=== PATIENT | female | born 1950 | race Caucasian/White ===

== ENCOUNTER 2018-12-29 02:00 | Observation (INO) | payer MEDICARE ==
[2018-12-29] MEDS ORDERED: Aspirin Chewable 81 MG TAB ONE (02:12)
[2018-12-29] MEDS ORDERED: Nitroglycerin 2% Ointment 1 INCH/1 GM Packet ONE (02:12)
[2018-12-29] MEDS ORDERED: Ondansetron PF 4 MG/2 ML Vial ONE (02:12)
[2018-12-29 02:26] LABS: #Basophils 0.1 thou/uL (0.0-0.2); #Eosinphils 0.2 thou/uL (0.0-0.7); #Lymphocytes 2.8 thou/uL (1.20-3.40); #Monocytes 0.7 thou/uL (0.11-0.59); #Neutrophils 3.4 thou/uL (1.40-6.50); %Basophils 1.5 % (0.0-1.0); %Eosinophils 3.2 % (0.0-10.0); %Lymphocytes 39.6 % (21.0-51.0); %Neutrophils 46.7 % (42.0-75.0); Hemoglobin 14.8 g/dL (12.0-16.0); Mean Corpuscular HGB CONC 34.1 g/dL (32.0-36.0); Mean Corpuscular Hemoglobin 31.6 pg (27.0-31.0); Mean Corpuscular Volume 92.5 fL (78.0-98.0); Mean Platelet Volume 6.9 fL (7.4-10.4); Platelet Count 322 thou/uL (130-400); RBC Distribution Width 11.4 % (11.5-14.5); White Blood Cell (WBC) Count 7.2 thou/uL (4.8-10.8)
[2018-12-29 02:45] LABS: ALT (SGPT) 28 U/L (8-55); AST (SGOT) 35 U/L (5-34); Albumin 4.5 g/dL (3.4-4.8); Alkaline Phosphatase 46 U/L (40-150); Anion Gap 15 mmol/L (10-20); BUN (Urea Nitrogen) 17 mg/dL (9.8-20.1); Bilirubin, Total 0.3 mg/dL (0.2-1.2); Calc. Creatinine Clearance 0 mL/min (70-130); Calcium 11.1 mg/dL (7.8-10.44); Carbon Dioxide 27 mmol/L (23-31); Chloride 100 mmol/L (98-107); Estimated GFR-MDRD 47; Globulin 3.2 g/dL (2.4-3.5); Glucose 134 mg/dL (80-115); Lipase 88 U/L (8-78); Potassium 4.4 mmol/L (3.5-5.1); Protein, Total 7.7 g/dL (6.0-8.3); Sodium 138 mmol/L (136-145)
[2018-12-29] MEDS ORDERED: Nitroglycerin 0.4 MG TAB 1 EACH ONE (03:26)
[2018-12-29] MEDS ORDERED: Zolpidem Tartrate 5 MG TAB PO PRN (03:59)
[2018-12-29] MEDS ORDERED: Ondansetron PF 4 MG/2 ML Vial IVP PRN (03:59)
[2018-12-29] MEDS ORDERED: ALPRAZolam 0.5 MG TAB PO PRN (04:01)
--- NOTE | 2018-12-29 04:17 | PDOC.EVN ---
Event Note - Event Note Event Note: H&P #[id number]
--- NOTE | 2018-12-29 05:14 | HP ---
ADMITTING COMPLAINT: Chest pain. HISTORY OF PRESENT ILLNESS: This is a 68-year-old female, who states that she was having chest pain and chest discomfort when she presented to the ER, also has noted some nausea; however, has not had any vomiting episodes. The patient states that she has had chest pains in the past, sees Dr. Tracey for her cardiac concerns and complaints, and has not been able to see him recently and so decided to come to the ER. The patient denies any other associated symptoms or complaints. No alleviating or aggravating factors noted. The patient is seen and examined in the ER. at bedside. All questions were answered. ALLERGIES: SEE LIST, IT IS PRETTY LARGE. HOME MEDICATIONS: See MAR. FAMILY HISTORY: Positive for hypertension, diabetes. SOCIAL HISTORY: Nondrinker, but does smoke marijuana every now and then. Otherwise, no other smoking history. REVIEW OF SYSTEMS: Pertinent positives in HPI, otherwise negative. PHYSICAL EXAMINATION: VITAL SIGNS: Blood pressure is 146/88, heart rate 51, respiratory rate 18, temperature 98, and O2 saturations 95% on room air. GENERAL: The patient is lying in bed, in no acute discomfort, obese. HEENT: Pupils equal, round, and reactive to light and accommodation. Extraocular muscles are intact. Oral cavity is moist and pink. NECK: Supple, mobile, and nontender. Thyroid appreciated. RESPIRATORY: Clear to auscultation bilaterally. No increase in AP diameter. No respiratory distress. CARDIOVASCULAR: Bradycardia, S1 and S2. No murmurs, rubs, or gallops appreciated. ABDOMEN: Positive bowel sounds. Soft, nontender, nondistended. EXTREMITIES: 2+ peripheral pulses noted. No cyanosis, clubbing, or edema noted. NEUROLOGIC: Cranial nerves 1 through 12 intact. Alert and oriented x3. No loss of motor or sensory function. LABORATORY DATA: CBC within normal limits. Basic metabolic panel within normal limits. IMAGING STUDIES: Chest x-ray done in the ER shows no acute cardiopulmonary process. ASSESSMENT AND PLAN: 1. Chest pain. 2. Hyperlipidemia. 3. Hypertension. 4. Bradycardia. 5. History of coronary artery disease, question. PLAN: 1. At this point in time, we will admit the patient to observation service. 2. Consult Cardiology, Dr. Tracey, who is her primary housing management officer. 3. We will rule out ACS with cardiac enzymes. 4. We will provide the patient with aspirin, atorvastatin, as well as her home medications. 5. We will hold off on any echos or anything along those lines as the patient does have a primary housing management officer, so we will wait for cardiac evaluation prior to any procedure ordering. Case and plan discussed with the patient and at length in the ER. They wish the patient to be a full code. They understand and agreed with the above late plan. Job ID: [id number]
[2018-12-29 05:37] LABS: Troponin I Less than 0.010 ng/mL (< 0.028)
--- NOTE | 2018-12-29 08:09 | RAD ---
SINGE VIEW CHEST: HISTORY: Chest pain. COMPARISON: 06/04/2013 FINDINGS: Single view of the chest show normal sized cardiomediastinal silhouette. There is no evidence of cons olidation, mass, or pleural effusion. The bones are unremarkable. IMPRESSION: No evidence of acute cardiopulmonary disease. POS: [facility]
[2018-12-29 08:37] LABS: Troponin I Less than 0.010 ng/mL (< 0.028)
[2018-12-29 13:17] LABS: Troponin I Less than 0.010 ng/mL (< 0.028)
[2018-12-29 15:30] VITALS: BMI 36.8
[2018-12-29] MEDS: rOPINIRole HCl 0.25 MG TAB PO SCH ×2 (16:39→21:07)
[2018-12-29] MEDS: Lisinopril 20 MG TAB PO SCH ×2 (16:39→21:06)
[2018-12-29] MEDS ORDERED: Acetaminophen 325 MG TAB PO PRN (16:39)
--- NOTE | 2018-12-29 18:28 | PRG ---
DATE OF SERVICE: 12/29/2018 I reviewed the patient's case, talked to the patient, examined the patient. She is having some chest pain, was able to look up her previous studies on her phone from [facility]. She had a stress test, which was intermediate, had a subsequent calcium scoring study, which was 2. Subsequently, I talked to Dr. Tracey, and I anticipate she will need a repeat catheterization. I relayed that information to Dr. Cisneros. Job ID: [id number]
--- NOTE | 2018-12-29 19:30 | CON ---
DATE OF CONSULTATION: 12/29/2018 REASON FOR CONSULTATION: Chest pain. PRIMARY MODERN AND CONTEMPORARY ART CURATOR: Dr. Tello Tracey. HISTORY OF PRESENT ILLNESS: Ms. River is a very pleasant 68-year-old white female, who comes to the hospital for chest pain. She has a history of Prinzmetal angina. She has had several heart catheterizations in the past that were negative. Last seen in Dr. Tracey's office by his nurse practitioner, Ana Lilia, who evaluated her at that time back in August of last year. At that time, she was having a lot of labile hypertension, and she was given a prescription of p.r.n. clonidine. This has to be stopped as every time she would take it, her heart rate would go down to the 40s, so her primary care doctor stopped this, which is appropriate. She noticed yesterday that she had a sudden onset of chest pain in the midsternal area. She checked her blood pressure, and the blood pressure was in the 200s/100s. This would not get better, so she decided to come in for evaluation. Currently, she is feeling much better. She is chest pain free. PAST MEDICAL HISTORY: 1. Diverticulosis. 2. Lumbar spinal stenosis. 3. Prinzmetal angina. 4. Hypertension. OUTPATIENT MEDICATIONS: Include, 1. Symbicort. 2. Sublingual nitroglycerin. 3. Requip. 4. Isosorbide mononitrate 30 mg a day. 5. Ezetimibe. 6. Alprazolam p.r.n. 7. Montelukast. 8. Zanaflex. 9. Losartan/hydrochlorothiazide 100/12.5 mg a day. 10. Donepezil. 11. Paroxetine. 12. Bisoprolol daily. 13. BuSpar. 14. Levothyroxine. ALLERGIES: 1. NEOSPORIN. 2. DARVON. 3. LEVAQUIN. 4. BACTRIM. SULFA DRUGS MAINLY. PAST SURGICAL HISTORY: 1. Appendectomy. 2. Hysterectomy. SOCIAL HISTORY: Smoked for 3 years, about 40 years ago was the last cigarette. FAMILY HISTORY: Noncontributory. REVIEW OF SYSTEMS: A 12-point review of systems was done and was found to be negative unless stated in the history of present illness. PHYSICAL EXAMINATION: VITAL SIGNS: Temperature 99.3, pulse 56, respiratory rate 18, saturating 97% on room air, and blood pressure 155/65. On initial evaluation in the ER, her blood pressure was 186/92, up to 208/70. Symptoms got much better after blood pressure was down to 120s over 70s before leaving the ER up to the floor. GENERAL: Awake, alert, and oriented x3. In no distress. HEENT: Normocephalic and atraumatic. NECK: Supple. LUNGS: Clear. CARDIOVASCULAR: S1 and S2. No S3 or S4. No murmurs. ABDOMEN: Soft. Positive bowel sounds. EXTREMITIES: No edema. SKIN: Warm and dry. LABORATORY DATA: Laboratory work was reviewed. CBC is unremarkable. Chemistries are unremarkable except for creatinine mildly elevated at 1.16, glucose of 134, calcium of 11.1, AST is high at 35. Troponin is undetectable x4. Albumin of 4.5, lipase of 88. EKG was reviewed. ASSESSMENT: 1. Prinzmetal angina. 2. Hypertensive urgency. 3. Normal heart catheterization in the past. 4. Normal stress test less than a year ago in clinic in [place]. PLAN: 1. Most likely, her episode of chest pain was related to her blood pressure being still elevated. She will probably need p.r.n. medication. Clonidine is not a good choice as it would make her bradycardic, so most likely will pick hydralazine. We would give her 25 mg hydralazine p.o. p.r.n. for systolic blood pressure above 170s. 2. She actually has a log in her phone of her blood pressures, and they have been anywhere from the 110s to 150s. She may need a little increase in her Imdur, but we will defer this to Dr. Tracey in the morning. 3. I do not think we need to further risk stratify her with a heart catheterization or with the stress as she recently had one in [place] and she has had negative heart catheterizations in the past. Thank you for letting me to participate in the care of your patient. Dr. Tracey, her primary meter maker, will have further recommendations in the morning. Job ID: [id number]
[2018-12-29] MEDS ORDERED: Atorvastatin Calcium 20 MG TAB PO SCH (21:00)
[2018-12-29] MEDS ORDERED: tiZANidine HCl 4 MG TAB PO SCH (21:00)
[2018-12-30 07:21] LABS: Hemoglobin 14.9 g/dL (12.0-16.0); Mean Corpuscular Hemoglobin 32.1 pg (27.0-31.0); Mean Corpuscular Volume 94.3 fL (78.0-98.0); Mean Platelet Volume 7.1 fL (7.4-10.4); Platelet Count 295 thou/uL (130-400); RBC Distribution Width 11.5 % (11.5-14.5); Red Blood Cell (RBC) Count 4.63 mill/uL (4.20-5.40); White Blood Cell (WBC) Count 5.1 thou/uL (4.8-10.8)
[2018-12-30 07:23] LABS: Anion Gap 14 mmol/L (10-20); BUN (Urea Nitrogen) 12 mg/dL (9.8-20.1); Calc. Creatinine Clearance 80 mL/min (70-130); Calcium 10.1 mg/dL (7.8-10.44); Carbon Dioxide 28 mmol/L (23-31); Chloride 101 mmol/L (98-107); Estimated GFR-MDRD 63; Glucose 98 mg/dL (80-115); Sodium 139 mmol/L (136-145)
[2018-12-30] MEDS ORDERED: Sodium Chloride 0.9% 1,000 ML IV SCH (09:15)
[2018-12-30] MEDS ORDERED: Communication Order-Pharmacy FS SCH (09:15)
[2018-12-30] MEDS ORDERED: Diazepam 5 MG TAB PO SCH (09:15)
[2018-12-30 09:17] LABS: Eosinophils 1 % (0-10); Lymphocytes 47 % (21-51); MDiff Complete? YES; Monocytes 3 % (0-10); Neutrophil 49 % (42-75); RBC Morphology Normal
[2018-12-30] MEDS: rOPINIRole HCl 0.25 MG TAB PO SCH (09:48)
[2018-12-30] MEDS: Lisinopril 20 MG TAB PO SCH ×2 (09:48→09:55)
--- NOTE | 2018-12-30 10:07 | PRG ---
DATE OF SERVICE: 12/30/2018 Ms. River is still having occasional chest pain. Reviewing the records, she had a history of cardiac catheterization she thinks 7 or 8 years ago, none recently. She had a recent stress test done in [place], which showed ischemia of the apex and mid anterior wall. In view of the abnormal stress test with recurrent chest pain, cardiac catheterization is indicated. Discussed risk of stroke, heart attack, iodine allergy, interference of blood supply to leg or kidney, stent thrombosis, stent restenosis, she understands and wished to proceed. Dr. Contreras will do this today. Job ID: [id number]
[2018-12-30] MEDS ORDERED: Gentamicin 80 MG/2 ML VIAL ONE (11:21)
[2018-12-30] MEDS ORDERED: CEFAZOLIN 1 GM VIAL ONE (11:21)
[2018-12-30] MEDS ORDERED: Iopamidol 370 76% 100 ML VIAL ONE (11:23)
[2018-12-30] MEDS ORDERED: Nitroglycerin 100MG/250ML BOT 250 ML ONE (12:03)
[2018-12-30] MEDS ORDERED: Heparin 10,000 UNITS/1 ML VIAL ONE (12:03)
[2018-12-30] MEDS ORDERED: Verapamil 5 MG/2 ML VIAL ONE (12:03)
[2018-12-30] MEDS ORDERED: Atropine Sulfate 1 mg/10 ml Syringe ONE (12:28)
[2018-12-30] MEDS ORDERED: EPINEPHrine 1 MG/10 ML Abboject SYRINGE ONE (12:30)
[2018-12-30] MEDS ORDERED: Acetaminophen/Codeine 30-300mg Tablet PO PRN ×2 (13:42)
[2018-12-30] MEDS ORDERED: Sodium Chloride 0.9% 200 ML IV PRN (13:42)
[2018-12-30] MEDS ORDERED: Nitroglycerin 0.4 MG TAB (25 Tab Bottle) SL PRN (13:42)
--- NOTE | 2018-12-30 14:33 | PRG ---
DATE OF SERVICE: 12/30/2018 SUBJECTIVE: Ms. River underwent cardiac catheterization. Today, she has an LAD bridge, but no obstructive coronary artery disease. The patient is very bradycardic here. She has had to be taken off the beta-mayda. ASSESSMENT: 1. Labile hypertension. 2. LAD bridge. 3. Severe bradycardia, on bisoprolol 5 mg a day. PLAN: 1. She is taken off bisoprolol. 2. Aspirin 81 mg a day. 3. Losartan 100 mg a day. 4. Torsemide 10 mg a day. 5. She is unable to tolerate amlodipine in the past due to edema. Could try again, it looks that amlodipine 2.5 mg a day if needed. The patient will be follow up as an outpatient. Job ID: [id number]
[2018-12-30 16:23] VITALS: BP 110/53; TEMP 99.2
--- NOTE | 2018-12-30 17:42 | DIS ---
DATE OF ADMISSION: 12/29/2018 DATE OF DISCHARGE: 12/30/2018 CONSULTANTS: Dr. Cisneros and Dr. Tracey of Cardiology. PROCEDURE PERFORMED: Cardiac catheterization. MEDICATIONS AT DISCHARGE: Discontinued medications: 1. Bystolic, secondary to severe bradycardia. 2. Losartan-hydrochlorothiazide discontinued as this was replaced with other medication. Medication changed are none. New medications: 1. Losartan 100 mg one p.o. daily. Prescription provided for 30 tablets, 11 refills. 2. Torsemide 10 mg p.o. daily. Prescription for 30 tablets, 11 refills. 3. Aspirin 81 mg daily. Continued medications: 1. Xanax 0.5 mg p.o. at bedtime as needed. 2. Symbicort two puffs inhaled twice daily. 3. Donepezil 10 mg at bedtime. 4. Zetia 10 mg daily. 5. Imdur 30 mg daily. 6. Levothyroxine 25 mcg daily. 7. Montelukast 10 mg daily. 8. Nitroglycerin 0.4 mg sublingual q.5 minutes p.r.n. for chest pain. Prescription refilled. 9. Paroxetine 20 mg daily. 10. Buspirone 7.5 mg b.i.d. 11. Requip 0.25 mg two tablets at bedtime. 12. Tizanidine 4 mg daily as needed. 13. Atorvastatin 20 mg daily. FINAL DIAGNOSES: 1. Chest pain with negative cardiac evaluationl. 2. Labile hypertension. 3. Left anterior descending artery bridge. 4. Mildly elevated LFTs. 5. Severe bradycardia, on Bystolic. SECONDARY DIAGNOSES: 1. Hypothyroidism. 2. Allergic rhinitis. 3. Dyslipidemia. 4. Anxiety. HISTORY OF PRESENT ILLNESS: Ms. River is a 68-year-old female with the above medical problems, who presented to the emergency room with chest pain and some nausea. She was admitted for further evaluation. HOSPITAL COURSE: The patient was evaluated by Cardiology initially on day of admission and again today with her outpatient manager corporate communications, Dr. Tracey. She underwent catheterization due to a recent stress test that was abnormal in conjunction with her symptoms. She was found to have an LAD bridge, but no obstructive cardiac disease. Because of the bradycardia, her beta mayda was discontinued. Her losartan-hydrochlorothiazide was changed to losartan separately plus torsemide for management of labile blood pressure. She will follow up closely with Dr. Tracey in the outpatient setting. The patient is overall feeling well, no further chest pain, and does meet criteria for discharge to home. PHYSICAL EXAMINATION: VITAL SIGNS: Temperature 98, pulse 48, respirations 16, sats 99% on room air, blood pressure 137/66 and range here is 106/54 to 159/70. GENERAL: Awake, alert, responsive, in no apparent distress. Able to speak in regular sentences. LUNGS: Clear to auscultation bilateral. HEART: Normal S1, S2. Regular rate and rhythm. No audible murmurs. ABDOMEN: Soft, present bowel sounds. EXTREMITIES: No edema. [facility] FINDINGS AND TEST RESULTS: CBC; 5.1, 14.9, 43.7, and 295. Chemistry; 139, 4.0, 101, 28, 12, 0.9, and 98. LFTs: T-bilirubin 0.3, AST 35, ALT 28, alkaline phosphatase 46, total protein 7.7, and albumin 4.5. Lipase 88. Troponins negative x4. Chest x-ray on 12/29, showed no evidence of an acute process. Catheterization: The patient experienced a vasovagal episode and received atropine and 1/2 dose of epinephrine. There was no significant stenosis. 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 DIET: Heart healthy. ACTIVITY: As tolerated. FOLLOWUP: 1. Follow up with primary care provider, Dr. Guardado to re-evaluate the mildly elevated liver function tests and address any other health concerns. 2. Follow up with Dr. Tracey as scheduled next month. Contact his office sooner if there are any concerns about her heart. CODE STATUS: Full. Reviewed with the patient this hospitalization, followup instructions, and return to care precautions. No questions or further needs at end of evaluation. Please fax patient's PCP Dr. Venita Guardado at [phone] (number obtained from a business card provided by the patient's family). Total time coordinating discharge is 30 minutes. Job ID: [id number] MTDD
[2018-12-31] MEDS ORDERED: Aspirin 81 mg Enteric Coated Tablet PO SCH (09:00)
[2018-12-31] MEDS ORDERED: Losartan 25 MG TAB PO SCH (09:00)
[2018-12-31] MEDS ORDERED: Torsemide 10 MG TAB PO SCH (09:00)
--- NOTE | 2018-12-31 17:15 | EKG ---
Test Reason : CP Blood Pressure : / mmHG Vent. Rate : 053 BPM Atrial Rate : 053 BPM P-R Int : 112 ms QRS Dur : 090 ms QT Int : 470 ms P-R-T Axes : 045 005 026 degrees QTc Int : 441 ms Sinus bradycardia Nonspecific ST abnormality Abnormal ECG Confirmed by JASS MOFFETT ([id number]), script editor HARLEEN FALK ([id number]) on 12/31/2018 5:14:53 PM Referred By: Confirmed By:JASS MOFFETT
--- NOTE | 2018-12-31 17:22 | EKG ---
Test Reason : CP-REPEAT Blood Pressure : / mmHG Vent. Rate : 047 BPM Atrial Rate : 047 BPM P-R Int : 148 ms QRS Dur : 100 ms QT Int : 488 ms P-R-T Axes : 035 001 042 degrees QTc Int : 431 ms Marked sinus bradycardia with sinus arrhythmia Minimal voltage criteria for LVH, may be normal variant Cannot rule out Anterior infarct , age undetermined Abnormal ECG No changes Confirmed by JASS MOFFETT ([id number]), marketing editor HARLEEN FALK ([id number]) on 12/31/2018 5:22:00 PM Referred By: Confirmed By:JASS MOFFETT
== END 2018-12-30 17:48 | disposition home or self-care (01) ==
LOC: ERS 02:00 → 2SW 04:04
PROVIDERS: ADMIT Internal Medicine; ATTEND Internal Medicine Cardiovascular Disease
PROC: 4A023N7 Measurement of Cardiac Sampling and Pressure, Left Heart, Percutaneous Approach (ICD-10-PCS; principal; 2018-12-30)
PROC: B2101ZZ Fluoroscopy of Single Coronary Artery using Low Osmolar Contrast (ICD-10-PCS; 2018-12-30)
DX: R07.9 Chest pain, unspecified (principal); I10 Essential (primary) hypertension; Q24.5 Malformation of coronary vessels; R00.1 Bradycardia, unspecified; E78.5 Hyperlipidemia, unspecified; I20.1 Angina pectoris with documented spasm; E03.9 Hypothyroidism, unspecified; J30.9 Allergic rhinitis, unspecified; F41.9 Anxiety disorder, unspecified; Z88.1 Allergy status to other antibiotic agents; Z88.2 Allergy status to sulfonamides; Z88.5 Allergy status to narcotic agent; Z87.891 Personal history of nicotine dependence; Z90.49 Acquired absence of other specified parts of digestive tract; Z90.710 Acquired absence of both cervix and uterus; Z79.82 Long term (current) use of aspirin; Z79.899 Other long term (current) drug therapy
CPT/HCPCS: 71045; 80048; 80053; 83690; 84484 ×2; 85007; 85025; 85027; 93005; 93458; 96374; 99285; C1769; G0378 ×2; 36415; J0171; J0461; J0690; J1580; J1644; J2405; Q9967

== ENCOUNTER 2022-10-28 15:19 | Observation (INO) | payer MEDICARE ==
[2022-10-28] MEDS ORDERED: Acetaminophen 500 MG TAB ONE (15:54)
[2022-10-28 16:01] LABS: #Eosinphils 0.1 thou/uL (0.0-0.7); #Lymphocytes 1.7 thou/uL (1.20-3.40); #Monocytes 0.4 thou/uL (0.11-0.59); #Neutrophils 3.5 thou/uL (1.40-6.50); %Basophils 0.7 % (0.0-1.0); %Eosinophils 2.5 % (0.0-10.0); %Lymphocytes 28.8 % (21.0-51.0); %Neutrophils 61.1 % (42.0-75.0); Hemoglobin 13.8 g/dL (12.0-16.0); Mean Corpuscular HGB CONC 33.5 g/dL (32.0-36.0); Mean Corpuscular Hemoglobin 31.7 pg (27.0-31.0); Mean Corpuscular Volume 94.8 fl (78.0-98.0); Mean Platelet Volume 6.2 fL (7.4-10.4); Platelet Count 393 10x3/uL (130-400); RBC Distribution Width 11.4 % (11.5-14.5); Red Blood Cell (RBC) Count 4.36 mill/uL (4.20-5.40); White Blood Cell (WBC) Count 5.8 10x3/uL (4.8-10.8)
[2022-10-28 16:22] LABS: ALT (SGPT) 16 U/L (8-55); AST (SGOT) 23 U/L (5-34); Albumin 4.6 g/dL (3.4-4.8); Alkaline Phosphatase 47 U/L (40-110); Anion Gap 15 mmol/L (10-20); BUN (Urea Nitrogen) 13 mg/dL (9.8-20.1); Bilirubin, Total 0.6 mg/dL (0.2-1.2); Calc. Creatinine Clearance 0 mL/min (70-130); Calcium 9.6 mg/dL (7.8-10.44); Carbon Dioxide 25 mmol/L (23-31); Chloride 99 mmol/L (98-107); Estimated GFR 74; Globulin 2.6 g/dL (2.4-3.5); Glucose 94 mg/dL (80-115); Potassium 3.6 mmol/L (3.5-5.1); Protein, Total 7.2 g/dL (5.8-8.1); Sodium 135 mmol/L (136-145)
[2022-10-28 17:04] LABS: CK (CPK) 119 U/L (29-168); Lipase 88 U/L (8-78)
[2022-10-28] MEDS ORDERED: Acetaminophen 325 MG TAB PO PRN (17:44)
[2022-10-28] MEDS ORDERED: Ondansetron PF 4 MG/2 ML Vial IVP PRN (19:33)
[2022-10-28] MEDS ORDERED: Ondansetron ODT 4 MG TAB PO PRN (19:33)
[2022-10-28] MEDS ORDERED: Nitroglycerin 0.4 MG TAB (25 Tab Bottle) SL PRN (19:34)
[2022-10-28] MEDS ORDERED: Ondansetron PF 4 MG/2 ML Vial IVP SCH (19:45)
[2022-10-28] MEDS ORDERED: Atorvastatin Calcium 20 MG TAB PO SCH (21:00)
[2022-10-28] MEDS ORDERED: Montelukast Sodium 10 mg Tablet PO SCH (21:00)
[2022-10-28] MEDS ORDERED: Donepezil HCl 10 MG TAB PO SCH (21:00)
[2022-10-28] MEDS ORDERED: cloNIDine 0.1 MG TAB PO PRN (21:25)
[2022-10-28 22:18] VITALS: BMI 34.1
[2022-10-28 22:30] LABS: Troponin I Less than 0.010 ng/mL (< 0.028)
[2022-10-28] MEDS ORDERED: Ezetimibe 10 MG TAB PO SCH (22:30)
[2022-10-28 22:38] LABS: SARS-CoV-2 NAA Rapid Test Not Detected (NotDetected)
[2022-10-28] MEDS: busPIRone HCl 5 MG TAB PO SCH (23:04)
[2022-10-28] MEDS: Nitroglycerin 2% Ointment 1 INCH/1 GM Packet TOP SCH (23:06)
[2022-10-29 04:37] LABS: Amphetamine Not Detected (NotDetected); Barbiturates Screen Not Detected (NotDetected); Benzodiazepine Screen Detected (NotDetected); Cocaine Metabolite Screen Not Detected (NotDetected); Methadone Not Detected (NotDetected); Methamphetamine Not Detected (NotDetected); Opiate Screen Not Detected (NotDetected); Oxycodone Screen Not Detected (NotDetected); Phencyclidine (PCP) Not Detected (NotDetected); THC/Cannabinoid Screen Detected (NotDetected); Tricyclic Screen Not Detected (NotDetected)
[2022-10-29] MEDS: Nitroglycerin 2% Ointment 1 INCH/1 GM Packet TOP SCH ×2 (04:51→16:18)
[2022-10-29 05:18] LABS: #Basophils 0.1 thou/uL (0.0-0.2); #Eosinphils 0.2 thou/uL (0.0-0.7); #Lymphocytes 2.2 thou/uL (1.20-3.40); #Monocytes 0.5 thou/uL (0.11-0.59); %Basophils 1.3 % (0.0-1.0); %Lymphocytes 44.3 % (21.0-51.0); %Monocytes 9.2 % (0.0-10.0); %Neutrophils 41.1 % (42.0-75.0); Hemoglobin 13.4 g/dL (12.0-16.0); Mean Corpuscular HGB CONC 34.9 g/dL (32.0-36.0); Mean Corpuscular Hemoglobin 33.2 pg (27.0-31.0); Mean Corpuscular Volume 95.3 fl (78.0-98.0); Mean Platelet Volume 6.4 fL (7.4-10.4); Platelet Count 356 10x3/uL (130-400); RBC Distribution Width 11.3 % (11.5-14.5); Red Blood Cell (RBC) Count 4.02 mill/uL (4.20-5.40); White Blood Cell (WBC) Count 4.9 10x3/uL (4.8-10.8)
[2022-10-29 05:49] LABS: Anion Gap 15 mmol/L (10-20); BUN (Urea Nitrogen) 13 mg/dL (9.8-20.1); Calc. Creatinine Clearance 75 mL/min (70-130); Calcium 9.3 mg/dL (7.8-10.44); Carbon Dioxide 20 mmol/L (23-31); Cardiac Risk 3.3 (Less than 4.5); Chloride 102 mmol/L (98-107); Cholesterol 170 mg/dl (< 200 Desired); Estimated GFR 72; Glucose 104 mg/dL (80-115); HDL Cholesterol 51 mg/dL (>60 Neg Risk); LDL Cholesterol, Calculated 84 mg/dL; Magnesium 1.8 mg/dL (1.6-2.6); Potassium 3.3 mmol/L (3.5-5.1); Sodium 134 mmol/L (136-145); Triglycerides 174 mg/dL (Less than 150)
[2022-10-29] MEDS ORDERED: Levothyroxine Sodium 25 MCG TAB PO SCH (06:00)
[2022-10-29] MEDS: Mometasone 100 MCG/Formoterol 5 MCG 120 PUFF INHALER INH SCH ×2 (07:14→18:18)
[2022-10-29] MEDS ORDERED: ALPRAZolam 0.5 MG TAB PO PRN (08:26)
[2022-10-29] MEDS ORDERED: Cyclobenzaprine 10 MG TAB PO PRN (08:26)
[2022-10-29] MEDS ORDERED: HYDROcodone/Acetaminophen 10/325 mg Tablet PO PRN (08:26)
[2022-10-29] MEDS ORDERED: Regadenoson 0.4 MG/5 ML SYRINGE ONE (08:54)
[2022-10-29] MEDS ORDERED: Potassium Chloride 20 MEQ TAB PO SCH (09:00)
[2022-10-29] MEDS ORDERED: Hydrochlorothiazide 25 MG TAB PO SCH (09:00)
[2022-10-29] MEDS ORDERED: guaiFENesin ER 600 MG TAB PO SCH (09:00)
[2022-10-29] MEDS ORDERED: Ezetimibe 10 MG TAB PO SCH ×3 (09:00→21:00)
[2022-10-29] MEDS ORDERED: Losartan 25 MG TAB PO SCH (09:00)
[2022-10-29] MEDS ORDERED: PARoxetine CR 12.5 MG TAB PO SCH (09:00)
[2022-10-29] MEDS: busPIRone HCl 5 MG TAB PO SCH (09:05)
[2022-10-29 15:44] VITALS: BP 188/76; TEMP 99.5
[2022-10-31] MEDS ORDERED: FLU VACC QS2022-23(65YR UP)/PF 240 MCG/0.7 ML SYRINGE IM ONE (09:00)
== END 2022-10-29 19:30 | disposition home or self-care (01) ==
LOC: ERS 15:19 → ERHOLD 17:10 → 2SW 20:34
PROVIDERS: ADMIT Internal Medicine; ATTEND Internal Medicine
DX: R07.2 Precordial pain (principal); I13.0 Hypertensive heart and chronic kidney disease with heart failure and stage 1 through stage 4 chronic kidney disease, or unspecified chronic kidney disease; N18.9 Chronic kidney disease, unspecified; I50.9 Heart failure, unspecified; E03.9 Hypothyroidism, unspecified; J44.9 Chronic obstructive pulmonary disease, unspecified; F03.90 Unspecified dementia, unspecified severity, without behavioral disturbance, psychotic disturbance, mood disturbance, and anxiety; E78.5 Hyperlipidemia, unspecified; F12.10 Cannabis abuse, uncomplicated; Z86.14 Personal history of Methicillin resistant Staphylococcus aureus infection; Z79.899 Other long term (current) drug therapy; Z88.1 Allergy status to other antibiotic agents; Z88.2 Allergy status to sulfonamides; Z20.822 Contact with and (suspected) exposure to COVID-19
CPT/HCPCS: 0240U; 71045; 78452; 80048; 80053; 80061; 80306; 82550; 83036; 83690; 83735; 83880; 84443; 84484 ×2; 85025 ×2; 85379; 93005; 93017; 93306; 94640; 94664; 94760; 96372 ×2; 99285; A9500; G0378 ×3; 36415; J1650; J2785

== ENCOUNTER 2023-04-10 11:43 | Inpatient (IN) | payer MEDICARE ==
[2023-04-10] MEDS ORDERED: Iopamidol-370 76% 500 ML MDV (1 ML CHARGE) ONE (11:49)
[2023-04-10 12:22] LABS: #Eosinphils 0.1 thou/uL (0.0-0.7); #Neutrophils 8.3 thou/uL (1.40-6.50); %Basophils 0.2 % (0.0-1.0); %Lymphocytes 29.4 % (21.0-51.0); %Monocytes 7.2 % (0.0-10.0); %Neutrophils 61.8 % (42.0-75.0); Hemoglobin 15.4 g/dL (12.0-16.0); Mean Corpuscular HGB CONC 34.9 g/dL (32.0-36.0); Mean Corpuscular Hemoglobin 31.9 pg (27.0-31.0); Mean Corpuscular Volume 91.3 fl (78.0-98.0); Mean Platelet Volume 8.2 fL (7.4-10.4); Platelet Count 501 10x3/uL (130-400); Red Blood Cell (RBC) Count 4.83 mill/uL (4.20-5.40); White Blood Cell (WBC) Count 13.5 10x3/uL (4.8-10.8)
[2023-04-10 12:36] LABS: INR-International Normal Ratio 0.9; Prothrombin Time 12.5 sec (12.0-14.7)
[2023-04-10 12:47] LABS: ALT (SGPT) 54 U/L (8-55); AST (SGOT) 21 U/L (5-34); Albumin 4.4 g/dL (3.4-4.8); Alkaline Phosphatase 42 U/L (40-110); Anion Gap 17 mmol/L (10-20); BUN (Urea Nitrogen) 17 mg/dL (9.8-20.1); Bilirubin, Total 0.6 mg/dL (0.2-1.2); Calc. Creatinine Clearance 0 mL/min (70-130); Calcium 10.5 mg/dL (7.8-10.44); Carbon Dioxide 23 mmol/L (23-31); Chloride 98 mmol/L (98-107); Estimated GFR 57; Globulin 2.3 g/dL (2.4-3.5); Glucose 97 mg/dL (80-115); Lipase 213 U/L (8-78); Protein, Total 6.7 g/dL (5.8-8.1); Sodium 135 mmol/L (136-145)
[2023-04-10 12:50] LABS: D-Dimer Test Less than 0.27 *mcg/mL (0.27-0.43); PTT 17.5 sec (22.9-36.1)
[2023-04-10 12:52] LABS: Potassium 2.5 mmol/L (3.5-5.1)
[2023-04-10] MEDS ORDERED: Morphine 4 MG/ML VIAL ONE (13:29)
[2023-04-10] MEDS ORDERED: Potassium Chloride 20 MEQ TAB ONE ×2 (13:29→13:55)
[2023-04-10] MEDS ORDERED: Ondansetron ODT 4 MG TAB ONE (13:29)
[2023-04-10] MEDS ORDERED: Magnesium 2 GM/50 ML BAG (IN WATER) ONE (13:29)
[2023-04-10] MEDS ORDERED: NS 0.9% w/ 40 MEQ KCL 1,000 ML IV SCH (14:15)
[2023-04-10] MEDS ORDERED: HYDROmorphone 0.5 MG/0.5 ML SYRINGE ONE (14:42)
[2023-04-10] MEDS ORDERED: hydrALAZINE 20 MG/ML VIAL SLOW IVP PRN (15:39)
[2023-04-10] MEDS ORDERED: Acetaminophen 325 MG TAB PO PRN (15:39)
[2023-04-10] MEDS ORDERED: Ipratropium/Albuterol 3 ML NEB NEB PRN (15:41)
[2023-04-10 16:31] LABS: SARS-CoV-2 NAA Rapid Test Not Detected (NotDetected)
[2023-04-10 17:09] VITALS: BMI 34.6
[2023-04-10 17:53] LABS: Troponin I Less than 0.010 ng/mL (< 0.028)
[2023-04-10 22:00] LABS: Troponin I Less than 0.010 ng/mL (< 0.028)
[2023-04-11 04:38] LABS: #Eosinphils 0.2 thou/uL (0.0-0.7); #Monocytes 0.6 thou/uL (0.11-0.59); #Neutrophils 5.9 thou/uL (1.40-6.50); %Basophils 0.4 % (0.0-1.0); %Eosinophils 1.7 % (0.0-10.0); %Lymphocytes 35.3 % (21.0-51.0); %Monocytes 5.5 % (0.0-10.0); %Neutrophils 56.8 % (42.0-75.0); Mean Corpuscular HGB CONC 33.7 g/dL (32.0-36.0); Mean Corpuscular Hemoglobin 31.3 pg (27.0-31.0); Mean Platelet Volume 8.3 fL (7.4-10.4); Platelet Count 409 10x3/uL (130-400); RBC Distribution Width 12.3 % (11.5-14.5); Red Blood Cell (RBC) Count 4.15 mill/uL (4.20-5.40); White Blood Cell (WBC) Count 10.4 10x3/uL (4.8-10.8)
[2023-04-11 05:07] LABS: Anion Gap 12 mmol/L (10-20); BUN (Urea Nitrogen) 14 mg/dL (9.8-20.1); Calc. Creatinine Clearance 79 mL/min (70-130); Calcium 8.4 mg/dL (7.8-10.44); Carbon Dioxide 23 mmol/L (23-31); Chloride 106 mmol/L (98-107); Estimated GFR 78; Glucose 79 mg/dL (80-115); Potassium 4.5 mmol/L (3.5-5.1); Sodium 136 mmol/L (136-145)
[2023-04-11] MEDS ORDERED: predniSONE 20 MG TAB PO SCH (09:30)
[2023-04-11 11:36] VITALS: TEMP 96.8
[2023-04-11 15:00] LABS: Reference Lab Name LABCORP
[2023-04-11 15:01] LABS: Ref Lab Test Ordered LYME AB PROFILE
[2023-04-11 16:06] VITALS: BP 142/66
== END 2023-04-11 16:09 | disposition home or self-care (01) | DRG 312 ==
LOC: ERS 11:43 → 2NO 15:18
PROVIDERS: ADMIT Internal Medicine; ATTEND Internal Medicine
DX: R55 Syncope and collapse (principal); K57.92 Diverticulitis of intestine, part unspecified, without perforation or abscess without bleeding; I13.0 Hypertensive heart and chronic kidney disease with heart failure and stage 1 through stage 4 chronic kidney disease, or unspecified chronic kidney disease; I50.32 Chronic diastolic (congestive) heart failure; E87.6 Hypokalemia; E86.0 Dehydration; J45.909 Unspecified asthma, uncomplicated; N18.2 Chronic kidney disease, stage 2 (mild); F41.9 Anxiety disorder, unspecified; F12.10 Cannabis abuse, uncomplicated; F19.90 Other psychoactive substance use, unspecified, uncomplicated; R53.1 Weakness; R26.81 Unsteadiness on feet; I95.9 Hypotension, unspecified; E78.5 Hyperlipidemia, unspecified; E03.9 Hypothyroidism, unspecified; J44.9 Chronic obstructive pulmonary disease, unspecified; F03.90 Unspecified dementia, unspecified severity, without behavioral disturbance, psychotic disturbance, mood disturbance, and anxiety; K44.9 Diaphragmatic hernia without obstruction or gangrene; M25.552 Pain in left hip; W19.XXXA Unspecified fall, initial encounter; I25.10 Atherosclerotic heart disease of native coronary artery without angina pectoris; G47.33 Obstructive sleep apnea (adult) (pediatric); Z20.822 Contact with and (suspected) exposure to COVID-19; Z90.49 Acquired absence of other specified parts of digestive tract; Z90.710 Acquired absence of both cervix and uterus; Z90.89 Acquired absence of other organs; Z88.1 Allergy status to other antibiotic agents; Z88.8 Allergy status to other drugs, medicaments and biological substances; Z79.899 Other long term (current) drug therapy; Z98.890 Other specified postprocedural states; Z86.39 Personal history of other endocrine, nutritional and metabolic disease; Z82.49 Family history of ischemic heart disease and other diseases of the circulatory system; Z88.2 Allergy status to sulfonamides
CPT/HCPCS: 36415; 71045; 71275; 80048; 80053; 83690; 83735; 84443; 84484; 85025; 85379; 85610; 85730; 87040; 93005; 93306; 96361; 96365; 96367; 96375; J1170; J1650; J2270; J3475; J3480; J7512; Q0162; Q9967; U0002

== ENCOUNTER 2024-08-03 19:01 | Observation (INO) | payer MEDICARE ==
[2024-08-03 20:17] LABS: #Basophils 0.03 10x3/uL (0.0-0.2); %Basophils 0.4 % (0.0-1.0); %Eosinophils 2.7 % (0.0-10.0); %Lymphocytes 38.7 % (21.0-51.0); %Monocytes 8.5 % (0.0-10.0); %Neutrophils 49.6 % (42.0-75.0); Hematocrit 35.6 % (36.0-47.0); Hemoglobin 12.2 g/dL (12.0-16.0); Mean Corpuscular HGB CONC 34.3 g/dL (32.0-36.0); Mean Corpuscular Hemoglobin 30.7 pg (27.0-31.0); Mean Corpuscular Volume 89.4 fL (78.0-98.0); Mean Platelet Volume 8.2 fL (7.4-10.4); Platelet Count 417 10x3/uL (130-400); Red Blood Cell (RBC) Count 3.98 mill/uL (4.20-5.40)
[2024-08-03 20:40] LABS: ALT (SGPT) 18 U/L (8-55); AST (SGOT) 19 U/L (5-34); Albumin 3.6 g/dL (3.4-4.8); Alkaline Phosphatase 40 U/L (40-110); Anion Gap 14 mmol/L (10-20); BUN (Urea Nitrogen) 12 mg/dL (9.8-20.1); Bilirubin, Total 0.3 mg/dL (0.2-1.2); Calc. Creatinine Clearance 0 mL/min (70-130); Calcium 8.4 mg/dL (7.8-10.44); Carbon Dioxide 25 mmol/L (23-31); Chloride 93 mmol/L (98-107); Estimated GFR 79; Globulin 2.3 g/dL (2.4-3.5); Glucose 85 mg/dL (83-110); Protein, Total 5.9 g/dL (5.8-8.1); Sodium 129 mmol/L (136-145)
[2024-08-03 20:41] LABS: Troponin I Less than 0.010 ng/mL (< 0.028)
[2024-08-03] MEDS ORDERED: Potassium Chloride 20 MEQ TAB ONE (21:33)
[2024-08-03] MEDS ORDERED: Ondansetron PF 4 MG/2 ML Vial ONE (21:33)
[2024-08-03] MEDS ORDERED: Morphine 2 MG/ML VIAL ONE (21:33)
[2024-08-03] MEDS ORDERED: HYDROmorphone 0.5 MG/0.5 ML SYRINGE ONE (21:42)
[2024-08-03] MEDS ORDERED: Amlodipine 5 MG TAB ONE (21:47)
[2024-08-03] MEDS ORDERED: Ondansetron PF 4 MG/2 ML Vial IVP PRN (21:50)
[2024-08-03] MEDS ORDERED: Acetaminophen 325 MG TAB PO PRN (21:50)
[2024-08-03 23:46] LABS: Troponin I 0.013 ng/mL (< 0.028)
[2024-08-04] MEDS ORDERED: HYDROcodone/Acetaminophen 10/325 mg Tablet ONE ×2 (00:28→10:59)
[2024-08-04] MEDS: HYDROcodone/Acetaminophen 10/325 mg Tablet PO SCH ×2 (00:31→11:01)
[2024-08-04] MEDS: Melatonin 3 MG TAB PO SCH (01:48)
[2024-08-04 02:36] LABS: #Basophils 0.05 10x3/uL (0.0-0.2); %Basophils 0.7 % (0.0-1.0); %Eosinophils 3.8 % (0.0-10.0); %Lymphocytes 48.4 % (21.0-51.0); %Monocytes 7.8 % (0.0-10.0); %Neutrophils 39.2 % (42.0-75.0); Hematocrit 34.9 % (36.0-47.0); Mean Corpuscular HGB CONC 34.4 g/dL (32.0-36.0); Mean Corpuscular Hemoglobin 31.4 pg (27.0-31.0); Mean Corpuscular Volume 91.4 fL (78.0-98.0); Mean Platelet Volume 8.3 fL (7.4-10.4); Platelet Count 413 10x3/uL (130-400); RBC Distribution Width 11.9 % (11.5-14.5); Red Blood Cell (RBC) Count 3.82 mill/uL (4.20-5.40)
[2024-08-04 02:54] LABS: Anion Gap 12 mmol/L (10-20); BUN (Urea Nitrogen) 10 mg/dL (9.8-20.1); Calc. Creatinine Clearance 0 mL/min (70-130); Calcium 8.6 mg/dL (7.8-10.44); Carbon Dioxide 26 mmol/L (23-31); Chloride 95 mmol/L (98-107); Estimated GFR 76; Glucose 115 mg/dL (83-110); Potassium 3.2 mmol/L (3.5-5.1); Sodium 130 mmol/L (136-145)
[2024-08-04 03:04] LABS: Troponin I Less than 0.010 ng/mL (< 0.028)
[2024-08-04] MEDS ORDERED: Enoxaparin 40 MG (0.4 mL) SYRINGE ONE (08:47)
[2024-08-04] MEDS ORDERED: Aspirin 81 mg Enteric Coated Tablet ONE (08:47)
[2024-08-04] MEDS: Enoxaparin 40 MG (0.4 mL) SYRINGE SC SCH (09:21)
[2024-08-04] MEDS: Aspirin 81 mg Enteric Coated Tablet PO SCH (09:21)
[2024-08-04 11:18] VITALS: BMI 32.2
[2024-08-04] MEDS: Losartan 25 MG TAB PO SCH (11:19)
[2024-08-04] MEDS: Isosorbide Mononitrate 30 MG ER.TAB PO SCH ×2 (13:58→15:14)
[2024-08-04] MEDS ORDERED: Isosorbide Mononitrate 30 MG ER.TAB PO SCH (14:30)
[2024-08-04 15:21] VITALS: BP 140/73; TEMP 97.4
[2024-08-04] MEDS ORDERED: Amlodipine 10 MG TAB PO SCH (21:00)
[2024-08-04] MEDS ORDERED: Donepezil HCl 10 MG TAB PO SCH (21:00)
[2024-08-04] MEDS ORDERED: Ezetimibe 10 MG TAB PO SCH (21:00)
== END 2024-08-04 15:37 | disposition home or self-care (01) ==
LOC: ERS 19:01 → ERHOLD 21:52
PROVIDERS: ADMIT Internal Medicine; ATTEND Internal Medicine
DX: R07.89 Other chest pain (principal); I10 Essential (primary) hypertension; J44.9 Chronic obstructive pulmonary disease, unspecified; Z98.890 Other specified postprocedural states; Z79.899 Other long term (current) drug therapy; Z88.2 Allergy status to sulfonamides; Z88.1 Allergy status to other antibiotic agents
CPT/HCPCS: 71045; 80048; 80053; 83880; 84484 ×3; 85025 ×2; 85379; 93005; 96372; G0378 ×2; J1650; J2405; 36415; J2272